=== PATIENT | male | born 1975 ===

== ENCOUNTER → 2021-04-20 | Outpatient (CLI) | payer OTHER ==
--- NOTE | 2021-04-20 10:46 | RAD ---
MR LUMBAR SPINE WO [id number] Date: 04/20/2021 8:02 AM Indication: LOW BACK PAIN. HX LUMBAR LAMINECTOMY [id number] Comparison: None. Technique: Multi-planar multi-weighted magnetic resonance imaging of the lumbar spine was performed w ithout intravenous contrast using the standard lumbar spine protocol. FINDINGS: The lumbar spine is normally aligned. No acute fracture. Mild multilevel degenerative disc desiccatio n and disc height loss. Bone marrow signal intensity is normal. The conus terminates at a normal level. No abnormal signal is seen within the visualized distal spina l cord. No clumping of intrathecal nerve roots. No soft tissue abnormality in the visualized abdomen or pelvis. T12-L1: No disc bulge. No facet arthropathy. No significant spinal stenosis or neural foraminal narro wing. L1-L2: No disc bulge. No facet arthropathy. No significant spinal stenosis or neural foraminal narrow ing. L2-L3: No disc bulge. No facet arthropathy. No significant spinal stenosis or neural foraminal narrow ing. L3-L4: Disc bulge. Mild facet arthropathy. No significant spinal stenosis or neural foraminal narrowi ng. L4-L5: Disc bulge with annular tear. Mild facet arthropathy. Mild spinal stenosis and lateral recess narrowing. Mild bilateral neural foraminal narrowing. L5-S1: Posterior decompression. No spinal canal stenosis. Mild left neural foraminal narrowing IMPRESSION: 1. Mild lumbar spondylosis, detailed above. 2. Posterior decompression at L5-S1. Electronically signed by: Hema Perales MD (04/20/2021 10:43 AM) [id number]
== END ==
LOC: MRI 10:10
PROVIDERS: ATTEND Nurse Practitioner
DX: M47.816 Spondylosis without myelopathy or radiculopathy, lumbar region (principal)
CPT/HCPCS: 72148